=== PATIENT | male | born 1980 | race Caucasian/White ===

== ENCOUNTER 2018-04-01 21:04 | Emergency (ER) | payer SELFPAY ==
[2018-04-01 22:50] LABS: Urine Blood NEGATIVE (NEG); Urine Glucose NEGATIVE (NEG); Urine Specific Gravity 1.025 (1.005-1.030)
[2018-04-01 22:52] LABS: Urine Protein TRACE (NEG)
[2018-04-01 22:54] LABS: Absolute Lymphocytes (CBC) 1.4 K/uL (0.7-4.9); Absolute Monocytes 0.8 K/uL (0.1-1.3); Absolute Neutrophil 10.5 K/uL (1.8-8.0); Basophils % 0.2 % (0-1.3); Eosinophils % 0.1 % (0-4.4); Hematocrit 44.7 % (39.6-49.0); Lymphocytes % 10.9 % (15.3-44.8); MCH 30.1 pg (27.0-35.0); MPV 8.4 fL (7.6-11.3); RBC Red Blood Cell Count 4.96 M/uL (4.33-5.43)
[2018-04-01 23:03] LABS: Protime INR 0.95
[2018-04-01 23:17] LABS: Barbiturates NEGATIVE (NEGATIVE); Benzodiazepines NEGATIVE (NEGATIVE); Cocaine NEGATIVE (NEGATIVE); METHAMPHETAM NEGATIVE (NEGATIVE); Methadone NEGATIVE (NEGATIVE); Opiates NEGATIVE (NEGATIVE); Phencyclidine NEGATIVE (NEGATIVE); THC Cannibis NEGATIVE (NEGATIVE)
[2018-04-01 23:21] LABS: ALT/SGPT 30 U/L (12-78); AST/SGOT 21 U/L (15-37); Albumin 3.9 g/dL (3.4-5.0); Alcohol Serum/Plasma < 3 mg/dL (0-3); Alkaline Phosphatase 92 U/L (45-117); BUN Blood Urea Nitrogen 11 mg/dL (7-18); Bicarbonate 26 mmol/L (21-32); Bilirubin Direct < 0.1 mg/dL (0-0.2); Bilirubin Total 0.3 mg/dL (0.2-1.0); Glucose Level 97 mg/dL (74-106); Potassium 3.8 mmol/L (3.5-5.1); Protein, Total 7.2 g/dL (6.4-8.2); Sodium Level 140 mmol/L (136-145)
--- NOTE | 2018-04-02 00:23 | ER ---
Nurse's Notes [facility] Name: New Pyle Age: 38 yrs Sex: Male : 1980 Arrival Date: 04/01/2018 Time: 21:07 Bed 5 Private MD: Diagnosis: Epilepsy and recurrent seizures Presentation: 04/01 21:29 Presenting complaint: Patient states: Pt had a seizure at 6 PM and was given his ea seizure medication and then had another at about 1930. Mother reports he was foggy and lasted longer than the first seizure. Pt taking Oxtellar for seizure. Transition of care: patient was not received from another setting of care. Onset of symptoms was April 01, 2018. Risk Assessment: Do you want to hurt yourself or someone else? Patient reports no desire to harm self or others. Initial Sepsis Screen: Does the patient meet any 2 criteria? No. Patient's initial sepsis screen is negative. Does the patient have a suspected source of infection? No. Patient's initial sepsis screen is negative. Care prior to arrival: Medication(s) given: Oxtellar. 21:29 Method Of Arrival: Ambulatory ea 21:29 Acuity: JOHN 3 ea Triage Assessment: 21:38 General: Appears in no apparent distress. Behavior is calm, cooperative, mother reports ea he has speech impediment and vision loss right eye. Pain: Denies pain. Neuro: Level of Consciousness is awake, alert, obeys commands, Oriented to person, situation. 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 - Social history:: Smoking status: Patient/guardian denies using tobacco. - Ebola Screening: : No symptoms or risks identified at this time. Screenin:36 Abuse screen: Denies threats or abuse. Nutritional screening: No deficits noted. ea Tuberculosis screening: No symptoms or risk factors identified. Fall Risk None identified. Assessment: 21:52 General: Appears in no apparent distress. comfortable, Behavior is calm, cooperative, bp BASELINE EXPRESSIVE APHASIA. Pain: Denies pain. Neuro: Level of Consciousness is awake, alert, obeys commands, Oriented to BASELINE EXPRESSIVE APHASIA. Cardiovascular: No deficits noted. Respiratory: Airway is patent Respiratory effort is even, unlabored, Respiratory pattern is regular, symmetrical. GI: No signs and/or symptoms were reported involving the gastrointestinal system. : No signs and/or symptoms were reported regarding the genitourinary system. EENT: No deficits noted. Derm: No deficits noted. Musculoskeletal: Circulation, motion, and sensation intact. Range of motion: intact in all extremities. 23:00 Reassessment: Patient appears in no apparent distress at this time. Patient and/or tl2 family updated on plan of care and expected duration. Pain level reassessed. Patient is alert, oriented x 3, equal unlabored respirations, skin warm/dry/pink. 04/02 00:08 Reassessment: Patient appears in no apparent distress at this time. Patient and/or tl2 family updated on plan of care and expected duration. Pain level reassessed. Patient is alert, oriented x 3, equal unlabored respirations, skin warm/dry/pink. 00:37 Reassessment: Patient appears in no apparent distress at this time. Patient and/or tl2 family updated on plan of care and expected duration. Pain level reassessed. Patient is alert, oriented x 3, equal unlabored respirations, skin warm/dry/pink. Pt and family verbalized understanding of discharge instructions, need for follow up. Pt ambulatory out of ER Patient states feeling better. Vital Signs: 04/01 21:36 BP 110 / 79; Pulse 80; Resp 18; Temp 98.6; Pulse Ox 95% on R/A; Weight 113.4 kg; Height ea 6 ft. 1 in. (185.42 cm); Pain 0/10; 22:28 BP 126 / 85; Pulse 67; Resp 18; Pulse Ox 97% on R/A; tl2 23:14 BP 101 / 70; Pulse 69; Resp 18; Pulse Ox 98% on R/A; tl2 07/21 00:06 BP 119 / 63; Pulse 61; Resp 18; Pulse Ox 98% on R/A; tl2 04/01 21:36 Body Mass Index 32.98 (113.40 kg, 185.42 cm) ea [place] Coma Score: 04/01 21:38 Eye Response: spontaneous(4). Verbal Response: oriented(5). Motor Response: obeys ea commands(6). Total: 15. ED Course: 21:07 Patient arrived in ED. am2 21:34 Triage completed. ea 21:43 Ari Ramirez PA is PHCP. cp 21:43 Regis Acosta MD is Attending Physician. cp 21:49 Jarad Lewis, RN is Primary Nurse. bp 21:51 Arm band placed on. bp 21:52 Patient has correct armband on for positive identification. Bed in low position. Call bp light in reach. Side rails up X2. Adult w/ patient. 22:00 Seizure precautions initiated. tl2 22:30 Initial lab(s) drawn, by ma, sent to lab. Inserted saline lock: 20 gauge in right cc forearm, using aseptic technique. 04/02 00:22 Bill Phelps MD is Referral Physician. cp 00:37 No provider procedures requiring assistance completed. IV discontinued, intact, tl2 bleeding controlled, No redness/swelling at site. Pressure dressing applied. Administered Medications: No medications were administered Outcome: 00:23 Discharge ordered by MD. cp 00:37 Discharged to home ambulatory, with family. tl2 00:37 Condition: stable 00:37 Discharge instructions given to patient, family, Instructed on discharge instructions, follow up and referral plans. Demonstrated understanding of instructions, follow-up care. 00:39 Patient left the ED. tl2 Signatures: Minoo Duckworth cc Ari Ramirez PA PA cp Knox, Taylor, RN RN tl2 Eduarda Tapia am2 Ranjana Houston RN RN ea Peltier, Brian, TALYA RN bp Corrections: (The following items were deleted from the chart) 00:07 04/01 23:00 Reassessment: Patient appears in no apparent distress at this time. Patient tl2 and/or family updated on plan of care and expected duration. Pain level reassessed. Patient is alert, oriented x 3, equal unlabored respirations, skin warm/dry/pink. tl2 04/02 00:08 04/01 23:00 Reassessment: Patient appears in no apparent distress at this time. Patient tl2 and/or family updated on plan of care and expected duration. Pain level reassessed. Patient is alert, oriented x 3, equal unlabored respirations, skin warm/dry/pink. Informed mother that PA would reassess after 4 hours post incident. Patient states feeling better. tl2 04/02 00:08 00:07 Reassessment: Patient appears in no apparent distress at this time. Patient tl2 and/or family updated on plan of care and expected duration. Pain level reassessed. Patient is alert, oriented x 3, equal unlabored respirations, skin warm/dry/pink. tl2
--- NOTE | 2018-04-02 00:24 | EDPHYS ---
Physician Documentation [facility] Name: New Pyle Age: 38 yrs Sex: Male : 1980 Arrival Date: 04/01/2018 Time: 21:07 Bed 5 Private MD: ED Physician Regis Acosta HPI: 04/01 21:50 This 38 yrs old Male presents to ER via Ambulatory with complaints of cp Seizure, Weakness. 21:50 The patient presents with a history of multiple seizures, a total of 2, that last an cp unknown period of time, the episode(s) was witnessed, by family, mother. Character of seizure(s): Loss of consciousness: the patient experienced loss of consciousness, Motor activity: generalized, shaking all over, Incontinence: none. Seizure onset: today. Context: occurred at home, Contributing factors: unknown. Seizure Hx: Seizure medications: Trileptal, last seizure was 4 months ago. Associated injury: Left lower extremity: left tse, abrasion. Current symptoms: Currently, the patient is not experiencing any symptoms, the patient feels back to baseline. 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 - Social history:: Smoking status: Patient/guardian denies using tobacco. - Ebola Screening: : No symptoms or risks identified at this time. ROS: 22:00 Constitutional: Negative for body aches, chills, fever, poor PO intake. cp 22:00 Eyes: Negative for injury, pain, redness, and discharge. cp 22:00 ENT: Negative for drainage from ear(s), ear pain, sore throat, difficulty swallowing, difficulty handling secretions. 22:00 Cardiovascular: Negative for chest pain, edema, palpitations. 22:00 Respiratory: Negative for cough, shortness of breath, wheezing. 22:00 Abdomen/GI: Negative for abdominal pain, nausea, vomiting, and diarrhea, constipation, black/tarry stool, rectal bleeding. 22:00 Back: Negative for pain at rest, pain with movement. 22:00 : Negative for urinary symptoms. 22:00 MS/extremity: Negative for decreased range of motion, deformity. 22:00 Skin: Positive for abrasion(s), of the left anterior lower leg. 22:00 Neuro: Positive for history of seizure, Negative for altered mental status. 22:00 All other systems are negative. Exam: 22:08 Constitutional: The patient appears in no acute distress, alert, awake, non-toxic, well cp developed, well nourished. 22:08 Head/face: Noted is surgical scar left scalp. cp 22:08 Eyes: Periorbital structures: appear normal, Pupils: equal, round, and reactive to light and accomodation, Extraocular movements: intact throughout, Conjunctiva: normal, Sclera: no appreciated abnormality, Lids and lashes: appear normal, bilaterally. 22:08 ENT: External ear(s): are unremarkable, Ear canal(s): are normal, clear, TM's: dullness, bilaterally, Nose: is normal, Mouth: Lips: moist, Oral mucosa: pink and intact, moist, Tongue: superficial abrasions lateral tongue with mild swelling, Posterior pharynx: is normal, airway is patent, no erythema, no exudate. 22:08 Neck: ROM/movement: is normal, is supple, without pain, no range of motions limitations, no meningismus, no nuchal rigidity. 22:08 Chest/axilla: Inspection: normal, Palpation: is normal, no crepitus, no tenderness. 22:08 Cardiovascular: Rate: normal, Rhythm: regular, Edema: is not appreciated, JVD: is not appreciated. 22:08 Respiratory: the patient does not display signs of respiratory distress, Respirations: normal, no use of accessory muscles, no retractions, no splinting, no tachypnea, labored breathing, is not present, Breath sounds: are clear throughout, no decreased breath sounds, no stridor, no wheezing. 22:08 Abdomen/GI: Inspection: abdomen appears normal, Bowel sounds: active, all quadrants, Palpation: abdomen is soft and non-tender, in all quadrants, rebound tenderness, is not appreciated, voluntary guarding, is not appreciated, involuntary guarding, is not appreciated. 22:08 Back: pain, is absent, ROM is normal. 22:08 Skin: cellulitis, is not appreciated, injury, abrasion(s), moderate sized abrasion noted, of the right upper back and anterior aspect left lower leg. 22:08 Neuro: Orientation: back to baseline, Mentation: back to baseline per family, Motor: moves all fours, strength is normal. 22:30 ECG was reviewed by the Attending Physician. cp Vital Signs: 21:36 BP 110 / 79; Pulse 80; Resp 18; Temp 98.6; Pulse Ox 95% on R/A; Weight 113.4 kg; Height ea 6 ft. 1 in. (185.42 cm); Pain 0/10; 22:28 BP 126 / 85; Pulse 67; Resp 18; Pulse Ox 97% on R/A; tl2 23:14 BP 101 / 70; Pulse 69; Resp 18; Pulse Ox 98% on R/A; tl2 04/02 00:06 BP 119 / 63; Pulse 61; Resp 18; Pulse Ox 98% on R/A; tl2 04/01 21:36 Body Mass Index 32.98 (113.40 kg, 185.42 cm) ea [place] Coma Score: 04/01 21:38 Eye Response: spontaneous(4). Verbal Response: oriented(5). Motor Response: obeys ea commands(6). Total: 15. MDM: 21:43 Patient medically screened. cp 22:00 Differential diagnosis: cerebral vascular accident, drug overdose, cardiac arrhythmia, cp seizure, TIA. 04/02 00:21 Data reviewed: vital signs, nurses notes, lab test result(s), EKG. cp 00:21 Counseling: I had a detailed discussion with the patient and/or guardian regarding: the cp historical points, exam findings, and any diagnostic results supporting the discharge/admit diagnosis, lab results, the need for outpatient follow up, a neurologist, to return to the emergency department if symptoms worsen or persist or if there are any questions or concerns that arise at home. ED course: VSS. Patient observed in ED and seizure activity reported or observed. 04/01 22:05 Order name: Acetaminophen; Complete Time: 23:42 cp 04/01 23:42 Interpretation: Reviewed. 04/01 22:05 Order name: Basic Metabolic Panel; Complete Time: 23:42 cp 04/01 22:05 Order name: CBC with Diff; Complete Time: 23:42 cp 04/01 23:42 Interpretation: Normal except: WBC 12.6; MEY% 82.8; LYM% 10.9; NEUT A 10.5. cp 04/01 22:05 Order name: ETOH Level; Complete Time: 23:42 cp 04/01 22:05 Order name: Hepatic Function; Complete Time: 23:42 cp 04/01 22:05 Order name: PT-INR; Complete Time: 23:42 cp 04/01 21:44 Order name: Seizure Precautions; Complete Time: 21:49 cp 04/01 22:05 Order name: Ptt, Activated; Complete Time: 23:42 cp 04/01 22:05 Order name: Salicylate; Complete Time: 23:42 cp 04/01 22:05 Order name: Urine Drug Screen; Complete Time: 23:42 cp 04/01 23:42 Interpretation: Reviewed. 04/01 22:05 Order name: EKG; Complete Time: 22:06 cp 04/01 22:05 Order name: EKG - Nurse/Tech; Complete Time: 22:27 cp 04/01 22:38 Order name: Urine Dipstick--Ancillary (enter results) cc 04/01 22:38 Order name: Urine Dipstick-Ancillary; Complete Time: 23:42 EDMS 04/01 22:05 Order name: IV Saline Lock; Complete Time: 22:27 cp 04/01 22:05 Order name: Labs collected and sent; Complete Time: 22:27 cp 04/01 22:05 Order name: Urine Dipstick-Ancillary (obtain specimen); Complete Time: 22:36 cp EC/20 22:30 Rate is 67 beats/min. Rhythm is regular. OK interval is normal. QRS interval is normal. cp QT interval is normal. T waves are Inverted in lead III. Interpreted by me. Reviewed by me. Administered Medications: No medications were administered Disposition: 04/02 01:00 Chart complete. cp Disposition: 04/02/18 00:23 Discharged to Home. Impression: Epilepsy and recurrent seizures. - Condition is Stable. - Discharge Instructions: Seizure, Adult. - Medication Reconciliation Form, Thank You Letter, Antibiotic Education, Prescription Opioid Use form. - Follow up: Bill Phelps MD; When: 04/04/2018; Reason: Recheck today's complaints. - Problem is an acute exacerbation. - Symptoms have improved. Addendum: 04/06/2018 07:30 Co-signature as Attending Physician, Regis Acosta MD I agree with the assessment and w a plan of care. PA/M[employer] SALES REPRESENTATIVE's history reviewed, patient interviewed, and examined. Signatures: Dispatcher [employer] EDMS Ari Ramirez PA PA cp Knox, Taylor RN RN tl2 Ranjana Houston RN RN ea Regis Acosta MD MD wa Corrections: (The following items were deleted from the chart) 04/02 00:39 00:23 04/02/2018 00:23 Discharged to Home. Impression: Epilepsy and recurrent seizures. tl2 Condition is Stable. Forms are Medication Reconciliation Form, Thank You Letter, Antibiotic Education, Prescription Opioid Use. Follow up: Bill Phelps; When: 04/04/2018; Reason: Recheck today's complaints. Problem is an acute exacerbation. Symptoms have improved. cp
--- NOTE | 2018-04-02 08:16 | EKG ---
Test Date: 2018-04-01 Test Time: 22:22:03 Elevator Service Technician: MELY MEASUREMENT RESULTS: Intervals: Rate: 67 DC: 176 QRSD: 94 QT: 384 QTc: 405 [place]: P: 46 DC: 176 QRS: 21 T: 19 INTERPRETIVE STATEMENTS: Normal sinus rhythm Possible Left atrial enlargement Incomplete right bundle branch block Borderline ECG Compared to ECG 09/29/2017 10:02:33 Incomplete right bundle-branch block now present ST (T wave) deviation no longer present Electronically Signed On 04-02-18 08:16:10 CDT by Kleber Carrillo
== END 2018-04-02 00:39 | disposition home or self-care (01) ==
LOC: ER 21:04
DX: G40.909 Epilepsy, unspecified, not intractable, without status epilepticus (principal); Z87.820 Personal history of traumatic brain injury
CPT/HCPCS: 36415; 80048; 80076; 80307; 80320; 80329; 81003; 85025; 85610; 85730; 93005; 99283